=== PATIENT | male | born 1960 | race Caucasian/White ===

== ENCOUNTER 2024-01-28 09:47 | Day surgery (SDC) | payer MEDICARE, BC ==
[2024-01-28] MEDS: Lactated Ringers 1,000 ML IV SCH (10:10)
[2024-01-28] MEDS ORDERED: Midazolam 1 MG/ML 2 ML SDV ONE (10:32)
[2024-01-28] MEDS ORDERED: Flumazenil 0.1 MG/ML 5 ML MDV ONE (10:32)
[2024-01-28] MEDS ORDERED: fentaNYL 50 MCG/ML SDV ONE (10:32)
[2024-01-28] MEDS ORDERED: Propofol 200 MG/20 ML SDV ONE ×2 (10:32)
[2024-01-28] MEDS ORDERED: Ketamine 200 MG/20 ML MDV ONE (10:32)
== END 2024-01-28 12:03 ==
LOC: CC.SDS 09:47
PROVIDERS: ATTEND Family Medicine
DX: Z12.11 Encounter for screening for malignant neoplasm of colon (principal); K57.30 Diverticulosis of large intestine without perforation or abscess without bleeding; E78.5 Hyperlipidemia, unspecified; I10 Essential (primary) hypertension; N40.0 Benign prostatic hyperplasia without lower urinary tract symptoms; L82.1 Other seborrheic keratosis; H60.90 Unspecified otitis externa, unspecified ear; I25.10 Atherosclerotic heart disease of native coronary artery without angina pectoris; G47.30 Sleep apnea, unspecified; Z79.899 Other long term (current) drug therapy
CPT/HCPCS: J2250; J2704; J3010; J3490; J7120